=== PATIENT | female | born 1945 | race Caucasian/White ===

== ENCOUNTER 2020-06-26 15:46 | Observation (INO) | payer MEDICARE ==
[~2020-06-26] VITALS: Ht 172.7 cm; Wt 135.3 kg
[2020-06-26 16:37] LABS: BASOPHILS ABSOLUTE AUTO 0.08 K/mm3 (0.00-0.23); BASOPHILS PERCENT AUTO 1 % (0-2); EOSINOPHILS PERCENT AUTO 4 % (0-6); Hematocrit 37.9 % (33.0-51.0); Hemoglobin 11.9 g/dL (11.5-16.0); IMMATURE GRAN ABSOLUTE AUTO 0.13 K/mm3 (0.00-0.10); IMMATURE GRAN PERCENT AUTO 2 % (0-1); LYMPHOCYTES PERCENT AUTO 14 % (21-46); MONOCYTES ABSOLUTE AUTO 0.53 K/mm3 (0.16-1.47); MONOCYTES PERCENT AUTO 6 % (4-13); Mean Corpuscular HGB Conc 31.4 g/dL (31.5-36.5); Mean Corpuscular Volume 92 fL (80-100); Mean Platelet Volume 9.7 fL (9.1-12.4); NEUTROPHILS ABSOLUTE AUTO 6.25 K/mm3 (1.96-9.15); NEUTROPHILS PERCENT AUTO 74 % (41-73); Platelet Count 229 K/mm3 (150-400); RDW Coefficient Variation 13.5 % (11.7-14.2); RDW Standard Deviation 45.9 fL (35.1-46.3); Red Blood Cell Count 4.11 M/mm3 (3.80-5.20); White Blood Cell Count 8.49 K/mm3 (4.00-11.30)
[2020-06-26 17:02] LABS: Alanine Aminotransfer (ALT/SGP 19 U/L (12-78); Albumin, Blood 3.1 g/dL (3.4-5.0); Albumin/Globulin Ratio 0.8 (0.8-1.8); Alk Phos 133 U/L (50-136); Anion Gap 7 mmol/L (6-16); Aspartate Aminotrans (AST/SGOT 17 U/L (12-37); Bilirubin, Total 0.2 mg/dL (0.1-1.0); Blood Urea Nitrogen 19 mg/dL (8-24); Bun/Creatinine Ratio 20.2 (12.0-20.0); CO2, Blood 24 mmol/L (21-32); Chloride, Blood 110 mmol/L (98-108); Creatinine, Blood 0.94 mg/dL (0.40-1.00); Globulin, Blood 4.1 g/dL (2.2-4.0); Glomerular Filtration Rate >60 (60-); Glucose, Blood 97 mg/dL (70-99); Potassium, Blood 3.7 mmol/L (3.5-5.5); Sodium, Blood 141 mmol/L (136-145); Total Protein, Blood 7.2 g/dL (6.4-8.2); Troponin I <0.015 ng/mL (0.000-0.040)
[2020-06-26] MEDS ORDERED: Prinivil10 MG PO (21:32)
[2020-06-26] MEDS ORDERED: ASPI325EC PO (22:54)
[2020-06-27 05:17] LABS: BASOPHILS ABSOLUTE AUTO 0.06 K/mm3 (0.00-0.23); BASOPHILS PERCENT AUTO 1 % (0-2); EOSINOPHILS ABSOLUTE AUTO 0.34 K/mm3 (0.00-0.68); EOSINOPHILS PERCENT AUTO 4 % (0-6); Hematocrit 38.1 % (33.0-51.0); Hemoglobin 12.1 g/dL (11.5-16.0); IMMATURE GRAN PERCENT AUTO 1 % (0-1); LYMPHOCYTES ABSOLUTE AUTO 1.32 K/mm3 (0.84-5.20); LYMPHOCYTES PERCENT AUTO 16 % (21-46); MONOCYTES PERCENT AUTO 8 % (4-13); Mean Corpuscular HGB 29.6 pg (26.0-34.0); Mean Corpuscular HGB Conc 31.8 g/dL (31.5-36.5); Mean Corpuscular Volume 93 fL (80-100); Mean Platelet Volume 9.8 fL (9.1-12.4); NEUTROPHILS ABSOLUTE AUTO 5.93 K/mm3 (1.96-9.15); NEUTROPHILS PERCENT AUTO 70 % (41-73); Platelet Count 230 K/mm3 (150-400); RDW Coefficient Variation 13.6 % (11.7-14.2); RDW Standard Deviation 46.4 fL (35.1-46.3); Red Blood Cell Count 4.09 M/mm3 (3.80-5.20); White Blood Cell Count 8.45 K/mm3 (4.00-11.30)
[2020-06-27 05:47] LABS: Anion Gap 7 mmol/L (6-16); Blood Urea Nitrogen 18 mg/dL (8-24); Bun/Creatinine Ratio 21.8 (12.0-20.0); CO2, Blood 27 mmol/L (21-32); Calcium, Blood 8.2 mg/dL (8.5-10.1); Chloride, Blood 107 mmol/L (98-108); Creatinine, Blood 0.83 mg/dL (0.40-1.00); Glomerular Filtration Rate >60 (60-); Glucose, Blood 90 mg/dL (70-99); Potassium, Blood 3.3 mmol/L (3.5-5.5); Sodium, Blood 141 mmol/L (136-145)
--- NOTE | 2020-06-27 06:23 | NUR ---
SHIFT SUMMARY PT WAS A NEW ADMIT DURING THE NIGHT, ARRIVING ON THE FLOOR AT 0043. SHE WAS ADMITTED FOR ACUTE HYPOXEMIC RESPIRATORY FAILURE. PT IS A&O X 4, SBA TO THE BATHROOM. BP WAS HIGH ON ADMIT, 216/72. PT WAS GIVEN 10 MG HYDRALAZINE, AND BP CAME DOWN TO 174/68. ALL OTHER VITALS STABLE. TELE SHOWED NSR IN THE 90S. NO C/O ACUTE PAIN OR NAUSEA. PT DID REPORT SOB WITH EXERTION, AND IS ON 2L O2 PRN. NO OTHER ACUTE CHANGES IN PT CONDITION NOTED SINCE ADMISSION. WILL CONTINUE TO MONTIOR AND TREAT PER EMAR UNTIL HAND OFF TO DAY SHIFT RN.
--- NOTE | 2020-06-27 09:54 | NUR ---
Echocardiogram completed.
--- NOTE | 2020-06-27 10:22 | NUR ---
MICONAZOLE POWDER PATIENT HAS REDNESS D/T MOISTURE IN BREAST AND ABDOMINAL FOLDS. RECEIVED V.O. FROM DR. WYLIE TO APPLY MICONAZOLE POWDER TO AFFECTED AREAS. EMAR UPDATED.
--- NOTE | 2020-06-27 10:23 | NUR ---
VERBAL ORDERS FROM DR. WYLIE INCENTIVE SPIROMETER, ELEVATE BLE ON PILLOWS, AND ORDER PHYSICAL THERAPY TO EVAL AND TREAT. ORDERS HAVE BEEN PLACED.
--- NOTE | 2020-06-27 10:24 | NUR ---
HYPERTENSION/HYDRALIZINE NO PARAMETERS TO ADMINISTER HYDRALIZINE, RECEIVED PARAMETERS FROM DR. WYLIE FOR SBP GREATER THAN 160 OR DBP GREATER THAN 100. HYDRALIZINE ORDER IN EMAR HAS BEEN UPDATED.
--- NOTE | 2020-06-27 16:58 | NUR ---
Shift Summary A/Ox4, pleasant and cooperative with care. 1p SBA c cane to bathroom/bedside commode. No pain issues. Patient denied taking having excessive salt intake, however, family stated patient does take in alot of salt. C/O shortness of breath with exertion, 2L O2 PRN. Tele: SR 60. Hydralizine given x 1 this shift. Patient voiding but unable to measure accurate I/O d/t incontinence and urgency. No other changes, WCTM.
[2020-06-28 04:59] LABS: BASOPHILS ABSOLUTE AUTO 0.07 K/mm3 (0.00-0.23); BASOPHILS PERCENT AUTO 1 % (0-2); EOSINOPHILS ABSOLUTE AUTO 0.32 K/mm3 (0.00-0.68); EOSINOPHILS PERCENT AUTO 5 % (0-6); IMMATURE GRAN ABSOLUTE AUTO 0.08 K/mm3 (0.00-0.10); IMMATURE GRAN PERCENT AUTO 1 % (0-1); LYMPHOCYTES ABSOLUTE AUTO 1.44 K/mm3 (0.84-5.20); LYMPHOCYTES PERCENT AUTO 21 % (21-46); MONOCYTES ABSOLUTE AUTO 0.72 K/mm3 (0.16-1.47); MONOCYTES PERCENT AUTO 10 % (4-13); Mean Corpuscular HGB Conc 32.4 g/dL (31.5-36.5); Mean Corpuscular Volume 93 fL (80-100); Mean Platelet Volume 9.7 fL (9.1-12.4); NEUTROPHILS ABSOLUTE AUTO 4.39 K/mm3 (1.96-9.15); NEUTROPHILS PERCENT AUTO 63 % (41-73); Platelet Count 236 K/mm3 (150-400); RDW Coefficient Variation 13.7 % (11.7-14.2); RDW Standard Deviation 46.5 fL (35.1-46.3); White Blood Cell Count 7.02 K/mm3 (4.00-11.30)
[2020-06-28 05:15] LABS: Albumin, Blood 2.8 g/dL (3.4-5.0); Anion Gap 5 mmol/L (6-16); Blood Urea Nitrogen 22 mg/dL (8-24); Bun/Creatinine Ratio 24.3 (12.0-20.0); CO2, Blood 30 mmol/L (21-32); Calcium, Blood 7.9 mg/dL (8.5-10.1); Chloride, Blood 105 mmol/L (98-108); Creatinine, Blood 0.91 mg/dL (0.40-1.00); Glomerular Filtration Rate >60 (60-); Glucose, Blood 96 mg/dL (70-99); Phosphorus, Blood 3.6 mg/dL (2.5-4.9); Potassium, Blood 3.4 mmol/L (3.5-5.5); Sodium, Blood 140 mmol/L (136-145)
--- NOTE | 2020-06-28 06:49 | NUR ---
CONCRETE LAYER SUMMARY A/OX4, PLEASANT AND COOPERATIVE WITH CARE. DENIES PAIN OR SOB, CURRENTLY ON RA WITH SATS GREATER THAN 92. CONTINUES TO BE HYPERTENSIVE AT TIMES, PRN HYDRALAZINE GIVEN. TELE RUNNING SR IN THE 60'S. NO ACUTE CHANGES AT THIS TIME. BED IN LOWEST POSITION WITH CALL LIGHT IN REACH. WILL CONTINUE TO MONITOR AND REPORT TO ONCOMING RN.
[2020-06-28] MEDS ORDERED: NORVASC5 MG PO (12:07)
[2020-06-28] MEDS ORDERED: ANTIFUNGAL POWD71 GM TOP (12:12)
[2020-06-28] MEDS ORDERED: FURO40 PO (12:12)
[2020-06-28] MEDS ORDERED: KLOR-CON 1010 ME1 PO (12:13)
--- NOTE | 2020-06-28 13:15 | NUR ---
PT IS A&O, VERY PLEASANT AND CO-OP. UP INDEPENDENTLY TO BTHRM USING CANE. DR WYLIE IN TO SEE PT EARLY THIS AM. PT TO RETURN TO [facility] TODAY. PT STARTED ON NEW BP MEDS FOR HTN AND DIASTOLIC HEART FAILURE. PT ALSO GIVEN LASIX FOR BLE EDEMA. SWELLING TO BLE'S DECREASED FROM YESTERDAY. PT ENCOURAGED TO START ON FR WHEN GOING HOME. DR WYLIE EXPLAINED FR REQUIREMENTS FOR AT HOME COMPLIANCE. PT ALSO ENCOURAGED TO OBTAIN A PCP FOR F/U AFTER DISCHARGE. SUPERVISOR [employer] NOTIFIED AND WILL CALL ON TUESDAY. PT UP TO SHOWER WITH ASSIST FROM DESKTOP SPECIALIST. TELE DC'D AND LATER IV SITE. PT C/O DIARRHEA AFTER BREAKFAST. IMODIUM X1 GIVEN PER EMAR. PT CURRENTLY WAITING FOR HER FRIEND TO GIVE HER A RIDE HOME. CALL LT IN REACH.
== END 2020-06-28 14:01 | disposition home health service (06) ==
LOC: ER 15:46 → MEDS 15:48 → ER 06-27 00:01 → MEDS 06-27 00:01 → ER 06-28 11:30 → MEDS 06-28 11:30
PROVIDERS: Internal Medicine; Physician Assistant; ADMIT Internal Medicine
DX: J96.01 Acute respiratory failure with hypoxia (principal); E87.6 Hypokalemia; I10 Essential (primary) hypertension; R60.1 Generalized edema; T50.2X5A Adverse effect of carbonic-anhydrase inhibitors, benzothiadiazides and other diuretics, initial encounter; Z87.891 Personal history of nicotine dependence
CPT/HCPCS: 36415; 71045; 80048; 80053; 80069; 83880; 84443; 84484; 85025; 93005; 93010; 93306; 93970; 96374; 96375; 96376; 97116; 97161; 97530; 99285-25; A9270; G0378; J0360; J1940

== ENCOUNTER → 2020-09-30 | Outpatient (CLI) | payer MEDICARE ==
[~2020-09-30] MED LIST: ANTIFUNGAL POWD71 GM TOP; ASPI325EC PO; FURO40 PO; KLOR-CON 1010 ME1 PO; NORVASC5 MG PO; Prinivil10 MG PO
[2020-09-30 19:21] LABS: BASOPHILS ABSOLUTE AUTO 0.07 K/mm3 (0.00-0.23); BASOPHILS PERCENT AUTO 1 % (0-2); EOSINOPHILS PERCENT AUTO 3 % (0-6); Hematocrit 41.7 % (33.0-51.0); IMMATURE GRAN ABSOLUTE AUTO 0.08 K/mm3 (0.00-0.10); IMMATURE GRAN PERCENT AUTO 1 % (0-1); LYMPHOCYTES ABSOLUTE AUTO 1.44 K/mm3 (0.84-5.20); LYMPHOCYTES PERCENT AUTO 16 % (21-46); MONOCYTES ABSOLUTE AUTO 0.64 K/mm3 (0.16-1.47); MONOCYTES PERCENT AUTO 7 % (4-13); Mean Corpuscular HGB 29.2 pg (26.0-34.0); Mean Corpuscular HGB Conc 31.2 g/dL (31.5-36.5); Mean Corpuscular Volume 94 fL (80-100); Mean Platelet Volume 9.6 fL (9.1-12.4); NEUTROPHILS ABSOLUTE AUTO 6.73 K/mm3 (1.96-9.15); NEUTROPHILS PERCENT AUTO 73 % (41-73); Platelet Count 238 K/mm3 (150-400); RDW Coefficient Variation 13.6 % (11.7-14.2); RDW Standard Deviation 46.5 fL (35.1-46.3); Red Blood Cell Count 4.45 M/mm3 (3.80-5.20); White Blood Cell Count 9.26 K/mm3 (4.00-11.30)
[2020-09-30 19:38] LABS: CHOL/HDL RATIO 5.1; Cholesterol 194 mg/dL (50-200); HDL Cholesterol 38 mg/dL (>39); LDL/HDL RATIO 3.2; Low Density Lipoprotein Chol 122 mg/dL (0-110); Triglycerides 170 mg/dL (30-160); Very Low Density Lipoprot Chol 34 mg/dL (6-32)
[2020-09-30 20:09] LABS: Anion Gap 6 mmol/L (6-16); Blood Urea Nitrogen 16 mg/dL (8-24); Bun/Creatinine Ratio 20.1 (12.0-20.0); CO2, Blood 29 mmol/L (21-32); Calcium, Blood 8.5 mg/dL (8.5-10.1); Chloride, Blood 102 mmol/L (98-108); Glomerular Filtration Rate >60 (60-); Glucose, Blood 103 mg/dL (70-99); Potassium, Blood 3.6 mmol/L (3.5-5.5); Sodium, Blood 137 mmol/L (136-145)
== END | disposition home or self-care (01) ==
LOC: LAB SHORT 17:22 → LAB 17:22
PROVIDERS: Family Medicine
DX: I10 Essential (primary) hypertension (principal); R06.09 Other forms of dyspnea
CPT/HCPCS: 80048; 80061; 83880; 85025

== ENCOUNTER 2022-07-03 18:07 | Inpatient (IN) | payer MEDICARE ==
[~2022-07-03] VITALS: Ht 172.7 cm; Wt 122.5 kg
[2022-07-03 18:53] LABS: BASOPHILS ABSOLUTE AUTO 0.05 K/mm3 (0.00-0.23); BASOPHILS PERCENT AUTO 1 % (0-2); EOSINOPHILS ABSOLUTE AUTO 0.41 K/mm3 (0.00-0.68); EOSINOPHILS PERCENT AUTO 5 % (0-6); Hematocrit 42.6 % (33.0-51.0); Hemoglobin 14.1 g/dL (11.5-16.0); IMMATURE GRAN ABSOLUTE AUTO 0.07 K/mm3 (0.00-0.10); IMMATURE GRAN PERCENT AUTO 1 % (0-1); LYMPHOCYTES ABSOLUTE AUTO 2.35 K/mm3 (0.84-5.20); LYMPHOCYTES PERCENT AUTO 26 % (21-46); MONOCYTES ABSOLUTE AUTO 0.68 K/mm3 (0.16-1.47); MONOCYTES PERCENT AUTO 8 % (4-13); Mean Corpuscular HGB 29.9 pg (26.0-34.0); Mean Corpuscular HGB Conc 33.1 g/dL (31.5-36.5); Mean Corpuscular Volume 90 fL (80-100); NEUTROPHILS ABSOLUTE AUTO 5.38 K/mm3 (1.96-9.15); NEUTROPHILS PERCENT AUTO 60 % (41-73); RDW Coefficient Variation 13.4 % (11.7-14.2); RDW Standard Deviation 44.7 fL (35.1-46.3); Red Blood Cell Count 4.71 M/mm3 (3.80-5.20); White Blood Cell Count 8.94 K/mm3 (4.00-11.30)
[2022-07-03 19:04] LABS: Albumin, Blood 3.2 g/dL (3.4-5.0); Albumin/Globulin Ratio 0.8 (0.8-1.8); Bilirubin, Total 0.3 mg/dL (0.1-1.0); Bun/Creatinine Ratio 25.6 (12.0-20.0); Calcium, Blood 8.3 mg/dL (8.5-10.1); Creatinine, Blood 0.9 mg/dL (0.40-1.00); Potassium, Blood 4.5 mmol/L (3.5-5.5); Total Protein, Blood 7.2 g/dL (6.4-8.2)
[2022-07-03 19:12] LABS: Mean Platelet Volume 10.1 fL (9.1-12.4); Platelet Count 212 K/mm3 (150-400)
--- NOTE | 2022-07-04 04:57 | NUR ---
SHIFT SUMMERY. PT ARRIVED TO FLOOR AND WAS ABLE TO AMBULATE TO BR WITH WALKER AND SBA. PT HAD INCONT URINE TO PAD AND VOIDED IN BR AND HAD A SOFT BROWN STOOL. PT STILL HAVING VISION DISTURBAND TO HER PERIFRIAL VISION. PT HAS EQUAL HAND GRASPS AND PUSH PULLS PT STATED SHE NORMALY HAS NEROPTHY SO NOT NOTICING ANY CHANGE TO SENSITIVITY. PT IS ALERT AND ORIENTED BUT CAN BE FORGETFULL, FORGETTING THINGS THAT JUST WERE DISCUSED. PT HAD HIGH BPS BUT BP DOWN AFTER IT WAS RETAKEN. PT HAS YEAST UNDER HER BREASTS AND UNDER PANNIS AREA. PT HAS A ABRASION TO COCCYX AREA BARRIOR CREAM APPLYED. PT GIVEN A SNACK AND PT TRYED TO SLEEP FOR A LITTLE WHILE. CALL LIGHT IN REACH.
[2022-07-04 05:27] LABS: BASOPHILS ABSOLUTE AUTO 0.06 K/mm3 (0.00-0.23); BASOPHILS PERCENT AUTO 1 % (0-2); EOSINOPHILS ABSOLUTE AUTO 0.51 K/mm3 (0.00-0.68); EOSINOPHILS PERCENT AUTO 6 % (0-6); Hematocrit 39.6 % (33.0-51.0); Hemoglobin 12.5 g/dL (11.5-16.0); IMMATURE GRAN ABSOLUTE AUTO 0.06 K/mm3 (0.00-0.10); IMMATURE GRAN PERCENT AUTO 1 % (0-1); LYMPHOCYTES ABSOLUTE AUTO 1.77 K/mm3 (0.84-5.20); LYMPHOCYTES PERCENT AUTO 21 % (21-46); MONOCYTES ABSOLUTE AUTO 0.66 K/mm3 (0.16-1.47); MONOCYTES PERCENT AUTO 8 % (4-13); Mean Corpuscular HGB 29.2 pg (26.0-34.0); Mean Corpuscular HGB Conc 31.6 g/dL (31.5-36.5); Mean Corpuscular Volume 93 fL (80-100); NEUTROPHILS ABSOLUTE AUTO 5.52 K/mm3 (1.96-9.15); NEUTROPHILS PERCENT AUTO 64 % (41-73); Platelet Count 220 K/mm3 (150-400); RDW Coefficient Variation 13.4 % (11.7-14.2); RDW Standard Deviation 45.7 fL (35.1-46.3); Red Blood Cell Count 4.28 M/mm3 (3.80-5.20); White Blood Cell Count 8.58 K/mm3 (4.00-11.30)
--- NOTE | 2022-07-04 05:55 | NUR ---
PT DOING WELL PT STATED VISON SEEMS TO BE RESOLVING AND NO NEW DEFICITS, PT HAS EQUAL PUSH PULLS NO DRIFT TO ARMS OR LEGS NO NEW NUMBNESS OR TINGLING NO NEW WEAKNESS. NO DEVIATION TO TOUNGE, NO PO DROP. PT ALERT AN ORIENTED BUT CAN BE A BIT FORGETFULL. CALL LIGHT IN REACH.
[2022-07-04 06:03] LABS: Albumin, Blood 2.9 g/dL (3.4-5.0); Albumin/Globulin Ratio 0.8 (0.8-1.8); Bilirubin, Total 0.3 mg/dL (0.1-1.0); Bun/Creatinine Ratio 24.7 (12.0-20.0); Calcium, Blood 8.1 mg/dL (8.5-10.1); Creatinine, Blood 0.93 mg/dL (0.40-1.00); Globulin, Blood 3.6 g/dL (2.2-4.0); Potassium, Blood 4.5 mmol/L (3.5-5.5); Total Protein, Blood 6.5 g/dL (6.4-8.2)
--- NOTE | 2022-07-04 08:19 | NUR ---
MD NOTIFICATION BP 174/65. BP HAS BEEN HIGH OVERNIGHT. PT HAS NO HEADACHE. DR STEVE NOTIFIED. NO NEW ORDERS.
--- NOTE | 2022-07-04 13:00 | NUR ---
CALL CALL FROM SARAH IN TELEMETRY - PT HAD 2 EVENTS OF AFIB IN THE LOW 100S. 1ST AT 0217 UNTIL 0226. 2ND AT [address] JONES CALLED AND NOTIFIED.
--- NOTE | 2022-07-04 15:50 | NUR ---
MD CALL DR STEVE CALLED BP 190/70. DR VILLA SAID EARLIER THAT SHE WANTED TO KEEP SOME HYPERTENSION AND THE LISINOPRIL WAS DISCONTINUED SO AM DOSE NOT GIVEN. DR STEVE UPDATED WITH CURRENT BLOOD PRESSURE. SHE IS ENTERING NEW ORDERS.
--- NOTE | 2022-07-04 17:04 | NUR ---
SHIFT SUMMARY MS VOICE IS A&OX4. TODAY SHE HAS HAD WHAT SHE DESCRIBES A "RIPPLE" ON THE PERIPHERY OF HER RIGHT EYE. 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 NO HEADACHE. NO OTHER PAIN. ON TELEMETRY, MOSTLY SB/SR WITH EPISODE OF AFIB FROM 1020-1030AM. PT HAD US/MRI AND ECHO DONE TODAY. SHE WALKED WITH PT IN THE HALLS AND WALKED WITH RN AND WALKER INTO BATHROOM WITH STEADY GAIT. HTN DOCUMENTED. HER COUSIN WHO LIVES A FEW ABODES FROM HER HAS VISITED FOR MUCH OF THE DAY. BED LOW, CALL LIGHT IN REACH.
[2022-07-05 05:43] LABS: BASOPHILS ABSOLUTE AUTO 0.05 K/mm3 (0.00-0.23); BASOPHILS PERCENT AUTO 1 % (0-2); EOSINOPHILS PERCENT AUTO 7 % (0-6); Hematocrit 40.7 % (33.0-51.0); IMMATURE GRAN ABSOLUTE AUTO 0.06 K/mm3 (0.00-0.10); IMMATURE GRAN PERCENT AUTO 1 % (0-1); LYMPHOCYTES ABSOLUTE AUTO 1.68 K/mm3 (0.84-5.20); LYMPHOCYTES PERCENT AUTO 23 % (21-46); MONOCYTES ABSOLUTE AUTO 0.65 K/mm3 (0.16-1.47); MONOCYTES PERCENT AUTO 9 % (4-13); Mean Corpuscular HGB Conc 31.9 g/dL (31.5-36.5); Mean Corpuscular Volume 94 fL (80-100); NEUTROPHILS ABSOLUTE AUTO 4.29 K/mm3 (1.96-9.15); NEUTROPHILS PERCENT AUTO 59 % (41-73); Platelet Count 208 K/mm3 (150-400); RDW Coefficient Variation 13.4 % (11.7-14.2); RDW Standard Deviation 46.3 fL (35.1-46.3); Red Blood Cell Count 4.33 M/mm3 (3.80-5.20); White Blood Cell Count 7.23 K/mm3 (4.00-11.30)
--- NOTE | 2022-07-05 05:46 | NUR ---
BP ELEVATED THIS AM, 204/68. MADE AWARE W/NEW ORDER RECIEVED FOR HYDRALAZINE 10MG IV NOW. MED RECIEVED AND WILL REEVALUATE FOR EFFECT.
--- NOTE | 2022-07-05 05:59 | NUR ---
SUMMARY: PT A/OX4, CALLS APPROPRIATELY TO SPECIFY NEEDS AND IS PLEASANT AND COOPERATIVE W/CARE. SHE'S UP W/SBA AND FWW BUT REPOSITIONS SELF IN BED. PT CONT'S TO REPORT ONLY VISUAL DEFICITS FROM CVA'S. SHE'S UNABLE TO MAKE OUT DETAILS W/HER L.EYE FROM PREVIOUS CVA AND DESCRIBES "A RIPPLED WATER" APPEARANCE TO OBJECTS IN HER R.PERIPHERAL VISUAL FIELD THAT'S NEW W/THIS CVA. SHE ALSO HAS CHRONIC NEUROPATHY BUT DENIES AND OTHER STRENGTH ABNORMALITIES OR DEFICITS. PERMISIVE HYPERTENSION PERSISTS W/SBP 190'S AT START OF SHIFT BUT SHE RECIEVED HYDRALAZINE 10MG IV X1 THIS AM FOR SBP 205, AWAITING EFFECT. PT REMAINS ON TELEMETRY IN S.BOLA-NSR AT 50'S-70'S BPM W/O EPISODES AFIB T/O NOCTE. NO ACUTE CHANGES AND PT IS HOPEFUL TO D/C HOME TODAY. WCTM AND REPORT TO DAY RN.
[2022-07-05 06:09] LABS: Bun/Creatinine Ratio 26.7 (12.0-20.0); Calcium, Blood 8.2 mg/dL (8.5-10.1); Creatinine, Blood 0.86 mg/dL (0.40-1.00); Potassium, Blood 4.5 mmol/L (3.5-5.5)
[2022-07-05] MEDS ORDERED: CLOP75 PO (11:41)
[2022-07-05] MEDS ORDERED: ATOR80 PO (11:41)
[2022-07-05] MEDS ORDERED: ASPI81CH PO (11:41)
--- NOTE | 2022-07-05 16:02 | NUR ---
SHIFT SUMMARY PATIENT IS ALERT AND ORIENTED. PATIENT HAS HAD NO ACUTE EVENTS THIS SHIFT. PATIENT WAS A POTENTIAL DISCHARGE THIS AFTERNOON. PATIENTS BP HAS BEEN ELEVATED THIS SHIFT. WAS NOTIFIED OF HIGH BP, MEDICATIONS WERE ADDED AND PATIENT WAS GIVEN ONE TIME PRN BP MEDICATION. PATIENT HAS A 1300 ONCOLOGIST APT TOMORROW AFTERNOON THAT PATIENT STATES THEY CAN NOT MISS. CARE MANAGEMENT IS AWARE OF PATIENTS APT TIME. BP REMAINS ELEVATED BUT MUCH BETTER THAN PREVIOUS IN SHIFT. PATIENT HAS NOT COMPLAINED OF PAIN, NAUSEA, SOB OR VOMITTING THIS SHIFT. VITAL SIGNS REVIEWED. BED IN LOCKED AND LOWEST POSITION. CALL LIGHT IN PLACE. WILL MONITOR UNTIL SHIFT CHANGE.
[2022-07-06 05:12] LABS: BASOPHILS ABSOLUTE AUTO 0.07 K/mm3 (0.00-0.23); BASOPHILS PERCENT AUTO 1 % (0-2); EOSINOPHILS ABSOLUTE AUTO 0.36 K/mm3 (0.00-0.68); EOSINOPHILS PERCENT AUTO 5 % (0-6); Hematocrit 40.5 % (33.0-51.0); Hemoglobin 12.7 g/dL (11.5-16.0); IMMATURE GRAN ABSOLUTE AUTO 0.07 K/mm3 (0.00-0.10); IMMATURE GRAN PERCENT AUTO 1 % (0-1); LYMPHOCYTES ABSOLUTE AUTO 1.44 K/mm3 (0.84-5.20); LYMPHOCYTES PERCENT AUTO 20 % (21-46); MONOCYTES ABSOLUTE AUTO 0.62 K/mm3 (0.16-1.47); MONOCYTES PERCENT AUTO 9 % (4-13); Mean Corpuscular HGB 29.4 pg (26.0-34.0); Mean Corpuscular HGB Conc 31.4 g/dL (31.5-36.5); Mean Corpuscular Volume 94 fL (80-100); Mean Platelet Volume 9.7 fL (9.1-12.4); NEUTROPHILS ABSOLUTE AUTO 4.71 K/mm3 (1.96-9.15); NEUTROPHILS PERCENT AUTO 65 % (41-73); Platelet Count 226 K/mm3 (150-400); RDW Coefficient Variation 13.6 % (11.7-14.2); RDW Standard Deviation 47.5 fL (35.1-46.3); Red Blood Cell Count 4.32 M/mm3 (3.80-5.20); White Blood Cell Count 7.27 K/mm3 (4.00-11.30)
[2022-07-06 05:56] LABS: Bun/Creatinine Ratio 28.3 (12.0-20.0); Calcium, Blood 7.6 mg/dL (8.5-10.1); Creatinine, Blood 0.99 mg/dL (0.40-1.00); Potassium, Blood 4.4 mmol/L (3.5-5.5)
--- NOTE | 2022-07-06 06:33 | NUR ---
SHIFT SUMMARY A/OX4, PLEASANT AND COOPERATIVE WITH CARE. SBA WITH FWW. TELE SB/SR, DENIES CHEST PAIN/PRESSURE. SPO2 >92% ON RA. VSS, NO ACUTE CHANGES AT THIS TIME. BED IN LOWEST POSITION WITH CALL LIGHT IN REACH. WILL CONTINUE TO MONITOR AND REPORT TO ONCOMING RN.
[2022-07-06] MEDS ORDERED: NIFE60ER PO (11:19)
[2022-07-06] MEDS ORDERED: XARELTO20 MG PO (11:21)
--- NOTE | 2022-07-06 13:25 | NUR ---
DISCHARGE PT EDUCATED ON NEW MEDS AND FOLLOW UP INSTRUCTIONS. PT DENIES NEED FOR FURTHER EDUCATION AT THIS TIME. IV REMOVED & INTACT. PT WHEELED OUT BY [employer]AREHOUSE PRICING AND INVENTORY CLERK AND DRIVEN HOME BY FRIEND. NO CHANGES IN ASSESSMENT PRIOR TO DC
== END 2022-07-06 12:32 | disposition home or self-care (01) | DRG 65 ==
LOC: ER 18:07 → MEDS 18:08
PROVIDERS: Family Medicine; Student in an Organized Health Care Education/Training Program; ADMIT Internal Medicine
DX: I63.89 Other cerebral infarction (principal); C78.00 Secondary malignant neoplasm of unspecified lung; I50.32 Chronic diastolic (congestive) heart failure; I11.0 Hypertensive heart disease with heart failure; R91.1 Solitary pulmonary nodule; R26.9 Unspecified abnormalities of gait and mobility; E04.1 Nontoxic single thyroid nodule; G93.89 Other specified disorders of brain; I48.0 Paroxysmal atrial fibrillation; R42 Dizziness and giddiness; H53.9 Unspecified visual disturbance; Z79.82 Long term (current) use of aspirin; Z79.899 Other long term (current) drug therapy; Z85.72 Personal history of non-Hodgkin lymphomas; Z85.42 Personal history of malignant neoplasm of other parts of uterus; Z90.710 Acquired absence of both cervix and uterus; Z79.811 Long term (current) use of aromatase inhibitors; Z79.01 Long term (current) use of anticoagulants; Z98.890 Other specified postprocedural states; Z98.42 Cataract extraction status, left eye; Z98.41 Cataract extraction status, right eye
CPT/HCPCS: 36415; 70450; 70496; 70551; 80048; 80053; 85025; 93005; 93010; 93880; 96372; 97112; 97116; 97161; 97165; 97530; 97535; 99285-25; A9270; C8929; J0360; J1650; J7030; Q9957; Q9967

== ENCOUNTER 2023-03-14 12:32 | Emergency (ER) | payer MEDICARE ==
[~2023-03-14] VITALS: Ht 172.7 cm; Wt 113.4 kg
[~2023-03-14 12:32] MED LIST changes: +ASPI81CH PO; +ATOR80 PO; +CLOP75 PO; +NIFE60ER PO; +XARELTO20 MG PO
[2023-03-14 14:57] LABS: Hematocrit 45.7 % (33.0-51.0); Hemoglobin 14.9 g/dL (11.5-16.0); Mean Corpuscular HGB 29.5 pg (26.0-34.0); Mean Corpuscular HGB Conc 32.6 g/dL (31.5-36.5); Mean Corpuscular Volume 91 fL (80-100); Mean Platelet Volume 10.2 fL (9.1-12.4); Platelet Count 257 K/mm3 (150-400); RDW Standard Deviation 46.3 fL (35.1-46.3); Red Blood Cell Count 5.05 M/mm3 (3.80-5.20); White Blood Cell Count 4.64 K/mm3 (4.00-11.30)
[2023-03-14 15:22] LABS: Albumin, Blood 2.5 g/dL (3.4-5.0); Albumin/Globulin Ratio 0.5 (0.8-1.8); Bilirubin, Total 1.9 mg/dL (0.1-1.0); Bun/Creatinine Ratio 20.3 (12.0-20.0); Calcium, Blood 8.4 mg/dL (8.5-10.1); Creatinine, Blood 1.38 mg/dL (0.40-1.00); Globulin, Blood 4.7 g/dL (2.2-4.0); Potassium, Blood 4.7 mmol/L (3.5-5.5); Total Protein, Blood 7.2 g/dL (6.4-8.2)
[2023-03-14 15:35] LABS: BAND PERCENT MAN 15 % (0-8); BASOPHILS PERCENT MAN 0 % (0-2); EOSINOPHILS PERCENT MAN 0 % (0-6); LYMPHOCYTES ABSOLUTE MAN 0.55 K/mm3 (0.84-5.20); LYMPHOCYTES PERCENT MAN 12 % (21-46); MONOCYTES ABSOLUTE MAN 1.94 K/mm3 (0.16-1.47); MONOCYTES PERCENT MAN 42 % (4-13); NEUTROPHILS ABSOLUTE MAN 2.13 K/mm3 (1.96-9.15); SEG NEUTROPHILS PERCENT MAN 31 % (41-73); TOTAL CELLS COUNTED 100
[2023-03-14 16:30] VITALS: BP 136/55
== END 2023-03-14 17:20 | disposition home or self-care (01) ==
LOC: ER 12:32
PROVIDERS: Student in an Organized Health Care Education/Training Program
DX: R53.1 Weakness (principal); E86.0 Dehydration; C54.1 Malignant neoplasm of endometrium; C78.00 Secondary malignant neoplasm of unspecified lung; Z79.899 Other long term (current) drug therapy; Z79.82 Long term (current) use of aspirin; Z79.01 Long term (current) use of anticoagulants
CPT/HCPCS: 80053; 84484; 85025; 93005; 93010; 96360; 99285-25; J7030

== ENCOUNTER → 2023-07-19 | Outpatient (CLI) | payer MEDICARE ==
[~2023-07-19] MED LIST changes: +CEPH500 PO; +ELIQUIS5 M2 PO
[2023-07-19 13:48] LABS: Appearance, Urine Turbid (Clear); Bilirubin, Urine Neg (Neg); Blood, Urine 5+ (Neg); Glucose Qualitative, Urine Neg (Neg); Ketones, Urine Neg (Neg); Leukocyte Esterase, Urine 3+ (Neg); Nitrite, Urine Pos (Neg); Protein, Urine 2+ (Neg); Urobilinogen, Urine NORM (Normal)
[2023-07-19 14:21] LABS: Color, Urine Pale Yellow (P-Yellow)
[2023-07-19 14:25] LABS: Bacteria Many /hpf; White Blood Cells, Urine TNTC /hpf (0-5)
[2023-07-19 14:27] LABS: Squamous Epithelial Cells Few /hpf (Few); Transitional Epithelial Cells Rare /hpf (0-Rare)
[2023-07-19 14:29] LABS: Mucus Light (0-Heavy)
[2023-07-19 14:33] LABS: Albumin/Globulin Ratio 0.4 (0.8-1.8); Bilirubin, Total 0.5 mg/dL (0.1-1.0); Bun/Creatinine Ratio 19.8 (12.0-20.0); Calcium, Blood 8.3 mg/dL (8.5-10.1); Creatinine, Blood 2.12 mg/dL (0.40-1.00); Potassium, Blood 4.8 mmol/L (3.5-5.5)
== END | disposition home or self-care (01) ==
LOC: LAB SHORT 12:00 → LAB 12:00
PROVIDERS: Registered Nurse Oncology
DX: C55 Malignant neoplasm of uterus, part unspecified (principal); C79.9 Secondary malignant neoplasm of unspecified site; N17.9 Acute kidney failure, unspecified
CPT/HCPCS: 80053; 81001; 87077; 87086; 87186